=== PATIENT | male | born 1965 | race Hispanic/Latino ===

== ENCOUNTER 2018-10-17 02:23 | Emergency (ER) | payer OTHER ==
[~2018-10-17] VITALS: Ht 165.1 cm; Wt 77.1 kg
[2018-10-17 02:26] VITALS: BP 160/93
--- NOTE | 2018-10-17 02:34 | ER.PDOC ---
General Chief Complaint: Requesting Medical Care Stated Complaint: DIFF BREATHING Time seen by MD: 02:33 Source: patient Exam Limitations: no limitations History of Present Illness Initial Comments Pt states that he has trouble breathing when he goes to bed Timing/Duration: 24 hours Severity: mild Activities at Onset: none Prior Episodes/Possible Cause: no prior episodes Modifying Factors: improves with coughing Associated Symptoms: cough Allergies: Coded Allergies: No Known Allergies (Unverified , 10/17/18) Review of Systems Respiratory: see HPI All Other Systems: Reviewed and Negative Physical Exam General Appearance: No Apparent Distress, WD/WN HEENT: PERRL/EOMI, Normal ENT Inspection, TMs Normal, Pharynx Normal Neck: Non-Tender, Full Range of Motion, Supple, Normal Inspection Respiratory: chest non-tender, lungs clear, normal breath sounds, no respiratory distress, no accessory muscle use Cardiovascular: Normal Peripheral Pulses, Regular Rate, Rhythm, No Edema, No Gallop, No JVD, No Murmur Gastrointestinal: Normal Bowel Sounds, No Organomegaly, No Pulsatile Mass, Non Tender, Soft Extremities: Normal Range of Motion, Non-Tender, Normal Inspection, No Pedal Edema, No Calf Tenderness, Normal Capillary Refill Neurologic/Psychiatric: jute bag sewer II-XII NML as Tested, No Motor/Sensory Deficits, Alert, Normal Mood/Affect, Oriented x 3 Skin: Normal Color, Warm/Dry Lymphatic: No Adenopathy Results/Orders Results/Orders Orders - VIANEY BURNETTE MD Ipratropium/Albuterol Sulfate (Duoneb 0. (10/17/18 02:44) Vital Signs Date Time Temp Pulse Resp B/P (MAP) Pulse Ox O2 Delivery O2 Flow Rate FiO2 10/17/18 02:26 98.4 80 18 160/93 (115) 100 Room Air 98.4 10/17/18 02:26 98.4 80 18 100 Room Air 98.4 10/17/18 02:26 98.4 80 18 98.4 Departure Time of Disposition: 02:46 Disposition: 01 HOME, SELF-CARE Impression: Primary Impression: Dyspnea Condition: Stable Patient Instructions: Shortness of Breath, [id number] Referrals: PCP,UNKNOWN (PCP) PRIMARY CARE PROVIDER Duration or Time Spent with Pa: 15 VIANEY BURNETTE MD Oct 17, 2018 02:33
[2018-10-17] MEDS ORDERED: DUONEB 0.5 MG-3 MG/3 ML SOLN IH STA (02:44)
[2018-10-17] MEDS ORDERED: DUONEB 0.5 MG-3 MG/3 ML SOLN IH ONE (02:45)
[2018-10-17 03:08] VITALS: BP 138/80
== END 2018-10-17 03:04 | disposition home or self-care (01) ==
LOC: ER 02:23
DX: R06.00 Dyspnea, unspecified (principal); R05 Cough
CPT/HCPCS: 94640; 99283; J7620